=== PATIENT | male | born 1995 | race American Indian/Alaskan Native ===

== ENCOUNTER 2019-12-28 14:01 | Emergency (ER) | payer MEDICAID, OTHER ==
--- NOTE | 2019-12-28 14:37 | Emergency Department Report ---
ED Psych HPI - General Chief Complaint: Psych Stated Complaint: SUICIDE ATTEMPT Time Seen by Provider: 12/28/19 14:28 Source: patient, EMS Mode of arrival: Ambulatory - History of Present Illness Initial Comments: Patient is 24 years old male with history of depression. Patient brought to the emergency room for evaluation of suicidal thoughts and possible attempt. Patient stated that he went to his mental health provider and he feels depressed because of the coronavirus that is been going on so he decided to grab a knife from the kitchen to try to kill himself. Patient admitted that he wanted to kill himself. He denied any homicidal ideation. No visual auditory hallu cination. MD Complaint: suicidal ideation, feels depressed -: This morning Associated Psychiatric Symptoms: depression, suicidal ideation History of same: Yes Quality: constant If Self Harm: admits thoughts of, has plan, has acted on plan - Related Data Allergies Allergy/AdvReac Type Severity Reaction Status Date / Time No Known Allergies Allergy Unverified 12/28/19 14:40 ED Review of Systems ROS: Stated complaint: SUICIDE ATTEMPT Other details as noted in HPI Comment: All other systems reviewed and negative Constitutional: denies: chills, diaphoresis Respiratory: denies: cough, shortness of breath, SOB with exertion, SOB at rest, wheezing Cardiovascular: denies: chest pain Gastrointestinal: denies: abdominal pain, nausea, vomiting Musculoskeletal: denies: back pain Neurological: denies: headache, weakness, numbness, paresthesias, confusion, abnormal gait Psychiatric: anxiety, depression, suicidal thoughts. denies: auditory hallucinations, visual hallucinations, homicidal thoughts ED Past Medical Hx - Past Medical History Hx Psychiatric Treatment: Yes (Schizophrenia, bipolar, anxiety) - Social History Smoking Status: Never Smoker Substance Use Type: None ED Physical Exam - General Limitations: No Limitations General appearance: alert, in no apparent distress - Head Head exam: Present: atraumatic, normocephalic, normal inspection - Eye Eye exam: Present: normal appearance, PERRL - ENT ENT exam: Present: normal exam, normal orophraynx, mucous membranes moist - Neck Neck exam: Present: normal inspection, full ROM. Absent: tenderness, meningismus, lymphadenopathy, thyromegaly - Respiratory Respiratory exam: Present: normal lung sounds bilaterally. Absent: respiratory distress, wheezes, rales, rhonchi, stridor, chest wall tenderness, accessory muscle use, decreased breath sounds, prolonged expiratory - Cardiovascular Cardiovascular Exam: Present: regular rate, normal rhythm, normal heart sounds - GI/Abdominal GI/Abdominal exam: Present: soft, normal bowel sounds. Absent: distended, tenderness, guarding, rebound, rigid, organomegaly, mass, bruit, pulsatile mass, hernia - Extremities Exam Extremities exam: Present: normal inspection, full ROM, normal capillary refill. Absent: pedal edema, calf tenderness - Back Exam Back exam: Present: normal inspection, full ROM. Absent: CVA tenderness (R), CVA tenderness (L) - Neurological Exam Neurological exam: Present: alert, oriented X3, CN II-XII intact - Psychiatric Psychiatric exam: Present: depressed, suicidal ideation. Absent: agitated, anxious, flat affect, manic, homicidal ideation - Skin Skin exam: Present: warm, intact, normal color ED Course Vital Signs 12/28/19 12/28/19 12/28/19 15:23 19:46 20:00 Temperature 98.7 F 98.1 F Pulse Rate 84 70 Respiratory 16 18 16 Rate Blood Pressure 105/70 118/59 [Right] O2 Sat by Pulse 97 98 98 Oximetry 12/29/19 12/29/19 12/29/19 01:32 08:54 14:47 Temperature 97.5 F L 97.8 F 98 F Pulse Rate 65 73 72 Respiratory 16 17 18 Rate Blood Pressure 104/48 106/62 118/67 [Right] O2 Sat by Pulse 98 99 99 Oximetry 12/29/19 12/30/19 12/30/19 20:42 02:12 08:25 Temperature 97.8 F 98.1 F 98.5 F Pulse Rate 67 60 80 Respiratory 18 18 18 Rate Blood Pressure 94/62 88/59 109/67 [Right] O2 Sat by Pulse 99 99 97 Oximetry 12/30/19 12/30/19 12/30/19 15:24 20:09 20:59 Temperature 98.7 F 98.3 F Pulse Rate 90 79 Respiratory 18 16 16 Rate Blood Pressure 113/55 104/54 [Right] O2 Sat by Pulse 98 98 98 Oximetry 12/31/19 12/31/19 12/31/19 02:22 07:53 09:08 Temperature 97.9 F 98.4 F Pulse Rate 68 56 L Respiratory 18 18 18 Rate Blood Pressure 108/47 119/69 [Right] O2 Sat by Pulse 97 99 99 Oximetry ED Medical Decision Making - Lab Data Result diagrams: 12/28/19 14:55 12/28/19 14:55 Critical care attestation.: If time is entered above; I have spent that time in minutes in the direct care of this critically ill patient, excluding procedure time. ED Disposition Clinical Impression: Suicidal ideation Disposition: [id number]/TX-65 PSY HOSP/PSY UNIT Is pt being admited?: No Condition: Stable Referrals: PRIMARY CARE, [Primary Care Provider] - 3-5 Days
[2019-12-28 14:53] LABS: Bilirubin,Urine NEG (Negative); Blood,Urine NEG (Negative); Color,Urine Yellow (Yellow); Mucus,Urine FEW /HPF; Protein,Urine <15 mg/dL mg/dL (Negative); Urobilinogen,Urine < 2.0 mg/dL (<2.0); WBC,Urine < 1.0 /HPF (0.0-6.0)
[2019-12-28 15:03] LABS: Amphetamine Screen,Urine PRESUMPTIVE NEGATIVE; Benzodiazepines Screen,Urine PRESUMPTIVE NEGATIVE; Cannabinoid Screen,Urine PRESUMPTIVE NEGATIVE; Cocaine Screen,Urine PRESUMPTIVE NEGATIVE; Methadone Screen,Urine PRESUMPTIVE NEGATIVE; Opiate Screen,Urine PRESUMPTIVE NEGATIVE
[2019-12-28 15:21] LABS: Basophils % (Auto) 0.6 % (0.0-1.8); Eosinophils # (Auto) 0.1 K/mm3 (0.0-0.4); Eosinophils % (Auto) 1.7 % (0.0-4.3); Hematocrit 39.2 % (35.5-45.6); Hemoglobin 12.7 gm/dl (11.8-15.2); Lymphocytes # (Auto) 1.9 K/mm3 (1.2-5.4); Lymphocytes % (Auto) 31.9 % (13.4-35.0); Mean Corpuscular HGB Conc 33 % (32-34); Mean Corpuscular Volume 78 fl (84-94); Monocytes # (Auto) 0.4 K/mm3 (0.0-0.8); Platelet Count 256 K/mm3 (140-440); Red Blood Count 5.03 M/mm3 (3.65-5.03); Red Cell Distribution Width 14.6 % (13.2-15.2)
[2019-12-28 15:24] LABS: BUN/Creatinine Ratio 12; Blood Urea Nitrogen 11 mg/dL (9-20); Calcium 9.9 mg/dL (8.4-10.2); Hemolysis Index 10
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
[2019-12-29] MEDS ORDERED: ZIPRASIDONE MESYLATE 20 MG VIAL IM PRN (12:48)
[2019-12-29] MEDS ORDERED: MELATONIN 5 MG TAB PO PRN (12:49)
[2019-12-29] MEDS: FLUoxetine 20 MG CAP PO SCH (14:00)
[2019-12-29] MEDS: QUEtiapine 25 MG TAB PO SCH ×2 (14:00→22:09)
[2019-12-30] MEDS: FLUoxetine 20 MG CAP PO SCH (11:02)
[2019-12-30] MEDS: QUEtiapine 25 MG TAB PO SCH ×2 (11:02→22:08)
[2019-12-31 07:54] VITALS: BP 119/69
== END 2019-12-31 10:00 ==
LOC: ED 14:01
DX: R45.851 Suicidal ideations (principal); F20.9 Schizophrenia, unspecified; F31.9 Bipolar disorder, unspecified; F41.9 Anxiety disorder, unspecified
CPT/HCPCS: 36415; 80048; 80307; 80320; 81001; 85025; G0480

== ENCOUNTER 2021-09-02 14:58 | Emergency (ER) | payer MEDICAID ==
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
[2021-09-02 16:44] LABS: Basophils % (Auto) 0.6 % (0.0-1.8); Eosinophils # (Auto) 0.1 K/mm3 (0.0-0.4); Eosinophils % (Auto) 1.6 % (0.0-4.3); Hematocrit 44.5 % (35.5-45.6); Hemoglobin 14.6 gm/dl (11.8-15.2); Lymphocytes # (Auto) 1.3 K/mm3 (1.2-5.4); Lymphocytes % (Auto) 14.6 % (13.4-35.0); Mean Corpuscular HGB Conc 33 % (32-34); Mean Corpuscular Volume 95 fl (84-94); Monocytes # (Auto) 0.8 K/mm3 (0.0-0.8); Monocytes % (Auto) 8.8 % (0.0-7.3); Platelet Count 186 K/mm3 (140-440); Red Blood Count 4.71 M/mm3 (3.65-5.03); Red Cell Distribution Width 12.8 % (13.2-15.2)
[2021-09-02 17:02] LABS: BUN/Creatinine Ratio 20; Blood Urea Nitrogen 16 mg/dL (9-20); Calcium 9.2 mg/dL (8.4-10.2); Hemolysis Index 16
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
[2021-09-02] MEDS ORDERED: ZIPRASIDONE MESYLATE 20 MG VIAL IM PRN (20:40)
--- NOTE | 2021-09-03 10:15 | Consultation ---
History of Present Illness - Reason for Consult Consult date: 09/03/21 Reason for consult: agitation, off meds - History of Present Psychiatric Illness The patient was seen today. He is a 25y/o male who was brought in by his father for agitation and aggression, also for being off of his meds. During my evaluation, the patient was irritable, short fused and sarcastic. He says "my dad thought my mental health was questionable because I been getting into fights." The patient says "I'm just an angry hugo sometimes. I'm no none sense and don't have time for bullsh*t." When asking about his psych history, the patient replies sarcastically, "you mean, what psych history you have." He then tells me he has a history of bipolar. I ask the patient what meds was he on, he says "what meds were you on" and then smirks and looks at me. The patient then says "I don't know what meds I was on." The patient says he's been off of his meds for a couple of months. He says he ran out of refills. The patient denies SI/HI, or hallucinations. PAST PSYCHIATRIC HISTORY: Diagnoses: Depression Suicide attempts or Self-harm behavior: twice Prior psychiatric hospitalizations: "denies" Substance Abuse history: Denies Previous psychiatric medications tried: Prozac Outpatient treatment: Yes PAST MEDICAL HISTORY: None reported Family Psychiatric History: None reported SOCIAL HISTORY Marital Status: Single Living Arrangements: with father Employment Status: Unemployed Access to guns/weapons: Denies Education: History of Abuse: Denies Legal History: Denies ROS: Constitutional: Negative for weight loss ENT: Negative for stridor Respiratory: Negative for cough or hemoptysis All other systems reviewed and are negative MENTAL STATUS General Appearance: Dressed appropriately. Behavior: irritable, agitated Affect: congruent with stated mood Mood: irritable Speech: Normal tone and pace Thought Process: Goal directed Thought Content Suicidal Ideation: Denies Homicidal Ideation: Denies Hallucinations: Denies Delusions: None elicited Insight/Judgement: Limited Memory/Cognition: Limited ASSESSMENT: Bipolar Disorder RECOMMENDATIONS Risperidone 0.5mg po BID Invega Sustenna 234mg IM x 1 Doxepin 10mg po daily Risks, benefits and alternatives of medications discussed with the patient, questions answered and consent obtained from patient. PSYCHOTHERAPY: Supportive psychotherapy provided MEDICAL: Per primary team DELIRIUM PRECAUTIONS: Please re-orient patient frequently, keep lights on during the day, and minimize benzodiazepines and opiates as these medications could worsen patient's confusion. MEDICAL OFFICE SPECIALIST: Defer to primary DISPOSITION: Recommend acute inpatient psychiatric treatment. Although the patient denies SI/HI, he appears impulsive, and his behavior and agitation could place him at risk of injury and a threat to others. Will give Invega injection and get the patient stabilized on his medications. The treatment plan, including benefits, and side effects of medication was discussed with the patient. The patient verbalizes understanding and agreement of plan. Please call with any questions or concerns. Thank you for this consult. Medications and Allergies Allergies Allergy/AdvReac Type Severity Reaction Status Date / Time No Known Allergies Allergy Unverified 12/28/19 14:40 Home Medications Medication Instructions Recorded Confirmed Last Taken Type Divalproex ER [DepaKOTE ER] 500 mg PO QDAY 09/02/21 09/02/21 Unknown History Paliperidone [Invega] 3 mg PO QAM 09/02/21 09/02/21 Unknown History Active Meds: Active Medications Ziprasidone (Ziprasidone Mesylate 20 Mg Vial) 20 mg IM Q2H PRN PRN Reason: Agitation Mental Status Exam - Vital signs Last Vital Signs Temp 98.5 F 09/02/21 20:17 Pulse 76 09/02/21 20:17 Resp 18 09/02/21 20:17 BP 111/77 09/02/21 20:17 Pulse Ox 99 09/02/21 20:17 Results Result Diagrams: 09/02/21 16:36 09/02/21 16:36 Abnormal lab results 09/02/21 09/02/21 09/02/21 Range/Units 16:36 16:36 16:36 MCV 95 H (84-94) fl RDW 12.8 L (13.2-15.2) % [place] % (Auto) 8.8 H (0.0-7.3) % Seg Neutrophils % 74.4 H (40.0-70.0) % Salicylates < 0.3 L (2.8-20.0) mg/dL Acetaminophen 5.0 L (10.0-30.0) ug/mL All other labs normal.
[2021-09-03] MEDS: risperiDONE 0.25 MG TAB PO SCH ×2 (11:02→22:07)
[2021-09-03] MEDS: PALIPERIDONE PALMITATE 234 MG/1.5 ML SYRINGE IM NR ×2 (11:02→11:17)
--- NOTE | 2021-09-03 15:54 | Event Note ---
Date: 09/03/21 S: No events reported overnight O: Vital Signs - 8 hr 09/03/21 12:22 Temperature 98.3 F Pulse Rate 78 Respiratory 18 Rate Blood Pressure 119/72 [Right] O2 Sat by Pulse 100 Oximetry A: Bipolar disorder P: Awaiting inpatient psych
[2021-09-03] MEDS: DOXEPIN 10 MG CAP PO SCH (22:07)
--- NOTE | 2021-09-04 07:31 | Progress Note ---
Subjective - Reason for Consult Consult date: 09/04/21 Reason for consult: agitation - Chief Complaint Chief complaint: The patient was seen today. He is in the seclusion room. The patient is irritable, but states he's doing okay. He denies SI/HI. Nurse note states the patient has been pacing, and combative. ROS: Constitutional: Negative for weight loss ENT: Negative for stridor Respiratory: Negative for cough or hemoptysis All other systems reviewed and are negative MENTAL STATUS General Appearance: Dressed appropriately. Behavior: irritable, agitated Affect: congruent with stated mood Mood: irritable Speech: Normal tone and pace Thought Process: Goal directed Thought Content Suicidal Ideation: Denies Homicidal Ideation: Denies Hallucinations: Denies Delusions: None elicited Insight/Judgement: Limited Memory/Cognition: Limited ASSESSMENT: Bipolar Disorder RECOMMENDATIONS Increase Risperidone 1mg po BID Invega Sustenna 234mg IM x 1 Doxepin 10mg po daily Risks, benefits and alternatives of medications discussed with the patient, questions answered and consent obtained from patient. PSYCHOTHERAPY: Supportive psychotherapy provided MEDICAL: Per primary team DELIRIUM PRECAUTIONS: Please re-orient patient frequently, keep lights on during the day, and minimize benzodiazepines and opiates as these medications could worsen patient's confusion. 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 Although the patient denies SI/HI, he appears impulsive, and his behavior and agitation could place him at risk of injury and a threat to others. Will give Invega injection and get the patient stabilized on his medications. The treatment plan, including benefits, and side effects of medication was discussed with the patient. The patient verbalizes understanding and agreement of plan. Please call with any questions or concerns. Thank you for this consult. Mental Status Exam - Vital signs Last Vital Signs Temp 98.3 F 09/04/21 06:13 Pulse 77 09/04/21 06:13 Resp 18 09/04/21 06:13 BP 130/71 09/04/21 06:13 Pulse Ox 98 09/04/21 06:13
[2021-09-04] MEDS: risperiDONE 1 MG TAB PO SCH ×2 (09:47→21:31)
[2021-09-04 10:32] LABS: Bilirubin,Urine NEG (Negative); Blood,Urine NEG (Negative); Color,Urine Yellow (Yellow); Mucus,Urine FEW /HPF; Protein,Urine <15 mg/dL mg/dL (Negative); RBC,Urine < 1.0 /HPF (0.0-6.0); Urobilinogen,Urine < 2.0 mg/dL (<2.0)
[2021-09-04 10:40] LABS: Amphetamine Screen,Urine Negative; Benzodiazepines Screen,Urine Negative; Cannabinoid Screen,Urine Negative; Cocaine Screen,Urine Negative; Methadone Screen,Urine Negative; Opiate Screen,Urine Negative
--- NOTE | 2021-09-04 15:52 | Emergency Department Report ---
Blank Doc - Documentation Documentation: 25-year-old male on 1012 awaiting placement. Patient previously medically arian ared. Vital signs within normal range. Meds adjusted by psychiatry
[2021-09-04] MEDS: DOXEPIN 10 MG CAP PO SCH (21:31)
--- NOTE | 2021-09-05 12:00 | Progress Note ---
Subjective - Reason for Consult Consult date: 09/05/21 Reason for consult: Mental health evaluation - Chief Complaint Chief complaint: The patient was seen today resting quietly in the room. The patient is calm. He denies any current suicidal/homicidal ideation and denies hallucinations. ROS: Constitutional: Negative for weight loss ENT: Negative for stridor Respiratory: Negative for cough or hemoptysis All other systems reviewed and are negative MENTAL STATUS General Appearance: Dressed appropriately. Behavior: irritable, agitated Affect: congruent with stated mood Mood: "ok" Speech: Normal tone and pace Thought Process: Goal directed Thought Content Suicidal Ideation: Denies Homicidal Ideation: Denies Hallucinations: Denies Delusions: None elicited Insight/Judgement: Limited Memory/Cognition: Limited ASSESSMENT: Bipolar Disorder RECOMMENDATIONS Increase Risperidone 1mg po BID Invega Sustenna 234mg IM x 1 Doxepin 10mg po daily Risks, benefits and alternatives of medications discussed with the patient, questions answered and consent obtained from patient. PSYCHOTHERAPY: Supportive psychotherapy provided MEDICAL: Per primary team DELIRIUM PRECAUTIONS: Please re-orient patient frequently, keep lights on during the day, and minimize benzodiazepines and opiates as these medications could worsen patient's confusion. 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 [facility] will provide patient with out patient resources. Will sign off Please call with any questions or concerns. Thank you for this consult. Mental Status Exam - Vital signs Last Vital Signs Temp 98.5 F 09/05/21 09:51 Pulse 77 09/05/21 09:51 Resp 18 09/05/21 09:51 BP 113/76 09/05/21 09:51 Pulse Ox 100 09/05/21 09:51
[2021-09-05] MEDS: risperiDONE 1 MG TAB PO SCH (12:12)
--- NOTE | 2021-09-05 12:12 | Event Note ---
Date: 09/05/21 Laboratory studies, vital signs, radiology studies nursing documentation, ER documentation, and psychiatric documentation are reviewed and appreciated. Nursing team reports no acute events this morning or concerns. The patient is awake and in no acute distress. He is able to articulate his needs. He went to the bathroom and ate breakfast this morning. The patient was deemed medically suitable for psychiatric disposition and placement during his initial ER evaluation. The patient continues to remain medically suitable for psychiatric placement and disposition. Psychiatric team have recommended discharge, and that the patient does not meet criteria for 1013 hold, involuntary hold, or inpatient psychiatric hospitalization. The psychiatric team have provided this patient with outpatient resources. Plan is to discharge at this time Vital Signs 09/02/21 09/02/21 09/03/21 15:02 20:17 12:22 Temperature 98.5 F 98.3 F Pulse Rate 80 76 78 Respiratory 14 18 18 Rate Blood Pressure 122/87 111/77 119/72 [Right] O2 Sat by Pulse 100 99 100 Oximetry 09/03/21 09/04/21 09/04/21 20:00 06:13 09:50 Temperature 98.3 F 98.3 F 98.7 F Pulse Rate 78 77 84 Respiratory 16 18 18 Rate Blood Pressure 115/78 130/71 131/89 [Right] O2 Sat by Pulse 99 98 100 Oximetry 09/04/21 09/04/21 09/04/21 10:29 18:39 21:17 Temperature 98.6 F 97.5 F L Pulse Rate 90 80 Respiratory 18 16 Rate Blood Pressure 124/70 109/70 [Right] O2 Sat by Pulse 100 98 99 Oximetry 09/05/21 09/05/21 02:58 09:51 Temperature 98.2 F 98.5 F Pulse Rate 85 77 Respiratory 18 18 Rate Blood Pressure 109/72 113/76 [Right] O2 Sat by Pulse 99 100 Oximetry Lab Results 09/02/21 09/02/21 09/02/21 Range/Units 16:36 16:36 16:36 WBC (4.5-11.0) K/mm3 RBC (3.65-5.03) M/mm3 Hgb (11.8-15.2) gm/dl Hct (35.5-45.6) % MCV (84-94) fl MCH (28-32) pg MCHC (32-34) % RDW (13.2-15.2) % Plt Count (140-440) K/mm3 Lymph % (Auto) (13.4-35.0) % Guthrie % (Auto) (0.0-7.3) % Eos % (Auto) (0.0-4.3) % Baso % (Auto) (0.0-1.8) % Lymph # (Auto) (1.2-5.4) K/mm3 Guthrie # (Auto) (0.0-0.8) K/mm3 Eos # (Auto) (0.0-0.4) K/mm3 Baso # (Auto) (0.0-0.1) K/mm3 Seg Neutrophils % (40.0-70.0) % Seg Neutrophils # (1.8-7.7) K/mm3 Sodium (137-145) mmol/L Potassium (3.6-5.0) mmol/L Chloride (98-107) mmol/L Carbon Dioxide (22-30) mmol/L Anion Gap mmol/L BUN (9-20) mg/dL Creatinine (0.8-1.3) mg/dL Estimated GFR ml/min BUN/Creatinine Ratio % Glucose (75-100) mg/dL Calcium (8.4-10.2) mg/dL Urine Color (Yellow) Urine Turbidity (Clear) Urine pH (5.0-7.0) Ur Specific [place] (1.003-1.030) Urine Protein (Negative) mg/dL Urine Glucose (UA) (Negative) mg/dL Urine Ketones (Negative) mg/dL Urine Blood (Negative) Urine Nitrite (Negative) Urine Bilirubin (Negative) Urine Urobilinogen (<2.0) mg/dL Ur Leukocyte Esterase (Negative) Urine WBC (Auto) (0.0-6.0) /HPF Urine RBC (Auto) (0.0-6.0) /HPF Urine Mucus /HPF Salicylates < 0.3 L (2.8-20.0) mg/dL Urine Opiates Screen Urine Methadone Screen Acetaminophen 5.0 L (10.0-30.0) ug/mL Ur Barbiturates Screen Ur Phencyclidine Scrn Ur Amphetamines Screen U Benzodiazepines Scrn Urine Cocaine Screen U Marijuana (THC) Screen Drugs of Abuse Note Plasma/Serum Alcohol < 0.01 (0-0.07) % Coronavirus (PCR) (Negative) 09/02/21 09/02/21 09/03/21 Range/Units 16:36 16:36 Unknown WBC 8.8 (4.5-11.0) K/mm3 RBC 4.71 (3.65-5.03) M/mm3 Hgb 14.6 (11.8-15.2) gm/dl Hct 44.5 (35.5-45.6) % MCV 95 H (84-94) fl MCH 31 (28-32) pg MCHC 33 (32-34) % RDW 12.8 L (13.2-15.2) % Plt Count 186 (140-440) K/mm3 Lymph % (Auto) 14.6 (13.4-35.0) % Guthrie % (Auto) 8.8 H (0.0-7.3) % Eos % (Auto) 1.6 (0.0-4.3) % Baso % (Auto) 0.6 (0.0-1.8) % Lymph # (Auto) 1.3 (1.2-5.4) K/mm3 Guthrie # (Auto) 0.8 (0.0-0.8) K/mm3 Eos # (Auto) 0.1 (0.0-0.4) K/mm3 Baso # (Auto) 0.0 (0.0-0.1) K/mm3 Seg Neutrophils % 74.4 H (40.0-70.0) % Seg Neutrophils # 6.5 (1.8-7.7) K/mm3 Sodium 138 (137-145) mmol/L Potassium 3.6 (3.6-5.0) mmol/L Chloride 98.1 (98-107) mmol/L Carbon Dioxide 26 (22-30) mmol/L Anion Gap 18 mmol/L BUN 16 (9-20) mg/dL Creatinine 0.8 (0.8-1.3) mg/dL Estimated GFR > 60 ml/min BUN/Creatinine Ratio 20 % Glucose 92 (75-100) mg/dL Calcium 9.2 (8.4-10.2) mg/dL Urine Color (Yellow) Urine Turbidity (Clear) Urine pH (5.0-7.0) Ur Specific [place] (1.003-1.030) Urine Protein (Negative) mg/dL Urine Glucose (UA) (Negative) mg/dL Urine Ketones (Negative) mg/dL Urine Blood (Negative) Urine Nitrite (Negative) Urine Bilirubin (Negative) Urine Urobilinogen (<2.0) mg/dL Ur Leukocyte Esterase (Negative) Urine WBC (Auto) (0.0-6.0) /HPF Urine RBC (Auto) (0.0-6.0) /HPF Urine Mucus /HPF Salicylates (2.8-20.0) mg/dL Urine Opiates Screen Urine Methadone Screen Acetaminophen (10.0-30.0) ug/mL Ur Barbiturates Screen Ur Phencyclidine Scrn Ur Amphetamines Screen U Benzodiazepines Scrn Urine Cocaine Screen U Marijuana (THC) Screen Drugs of Abuse Note Plasma/Serum Alcohol (0-0.07) % Coronavirus (PCR) Negative (Negative) 09/04/21 09/04/21 Range/Units Unknown Unknown WBC (4.5-11.0) K/mm3 RBC (3.65-5.03) M/mm3 Hgb (11.8-15.2) gm/dl Hct (35.5-45.6) % MCV (84-94) fl MCH (28-32) pg MCHC (32-34) % RDW (13.2-15.2) % Plt Count (140-440) K/mm3 Lymph % (Auto) (13.4-35.0) % Guthrie % (Auto) (0.0-7.3) % Eos % (Auto) (0.0-4.3) % Baso % (Auto) (0.0-1.8) % Lymph # (Auto) (1.2-5.4) K/mm3 [place]rie # (Auto) (0.0-0.8) K/mm3 Eos # (Auto) (0.0-0.4) K/mm3 Baso # (Auto) (0.0-0.1) K/mm3 Seg Neutrophils % (40.0-70.0) % Seg Neutrophils # (1.8-7.7) K/mm3 Sodium (137-145) mmol/L Potassium (3.6-5.0) mmol/L Chloride (98-107) mmol/L Carbon Dioxide (22-30) mmol/L Anion Gap mmol/L BUN (9-20) mg/dL Creatinine (0.8-1.3) mg/dL Estimated GFR ml/min BUN/Creatinine Ratio % Glucose (75-100) mg/dL Calcium (8.4-10.2) mg/dL Urine Color Yellow (Yellow) Urine Turbidity Clear (Clear) Urine pH 6.0 (5.0-7.0) Ur Specific [place] 1.013 (1.003-1.030) Urine Protein <15 mg/dl (Negative) mg/dL Urine Glucose (UA) Neg (Negative) mg/dL Urine Ketones Neg (Negative) mg/dL Urine Blood Neg (Negative) Urine Nitrite Neg (Negative) Urine Bilirubin Neg (Negative) Urine Urobilinogen < 2.0 (<2.0) mg/dL Ur Leukocyte Esterase Neg (Negative) Urine WBC (Auto) 1.0 (0.0-6.0) /HPF Urine RBC (Auto) < 1.0 (0.0-6.0) /HPF Urine Mucus Few /HPF Salicylates (2.8-20.0) mg/dL Urine Opiates Screen Negative Urine Methadone Screen Negative Acetaminophen (10.0-30.0) ug/mL Ur Barbiturates Screen Negative Ur Phencyclidine Scrn Negative Ur Amphetamines Screen Negative U Benzodiazepines Scrn Negative Urine Cocaine Screen Negative U Marijuana (THC) Screen Negative Drugs of Abuse Note Disclamer Plasma/Serum Alcohol (0-0.07) % Coronavirus (PCR) (Negative)
[2021-09-05 13:50] VITALS: BP 110/76
== END 2021-09-05 13:49 | disposition home or self-care (01) ==
LOC: ED 14:58 → EEVIPCON 14:58 → ED 09-05 13:49
DX: Z04.6 Encounter for general psychiatric examination, requested by authority (principal); S00.83XA Contusion of other part of head, initial encounter; Z20.822 Contact with and (suspected) exposure to COVID-19; F31.9 Bipolar disorder, unspecified; F41.9 Anxiety disorder, unspecified; X58.XXXA Exposure to other specified factors, initial encounter; Y93.89 Activity, other specified; Y92.89 Other specified places as the place of occurrence of the external cause; Y99.8 Other external cause status; Z79.899 Other long term (current) drug therapy
CPT/HCPCS: 36415; 70450; 70486; 80048; 80307; 81001; 85025; 99284; J2426; J3486; U0003; 80320; G0480